=== PATIENT | male | born 1975 | race American Indian/Alaskan Native ===

== ENCOUNTER 2017-03-09 21:40 | Emergency (ER) | payer OTHER ==
[2017-03-10] MEDS ORDERED: FLEXERIL PO ONE ×2 (04:00→04:01)
[2017-03-10] MEDS ORDERED: MOTRIN PO ONE (04:00)
[2017-03-10] MEDS ORDERED: TORADOL IM ONE (04:01)
[2017-03-10] MEDS ORDERED: COZAAR PO ONE (04:02)
[2017-03-10 04:08] VITALS: BP 154/100
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
== END 2017-03-10 04:51 | disposition home or self-care (01) ==
LOC: ED 21:40
DX: S39.012A Strain of muscle, fascia and tendon of lower back, initial encounter (principal); I10 Essential (primary) hypertension; V49.59XA Passenger injured in collision with other motor vehicles in traffic accident, initial encounter; Y93.9 Activity, unspecified; Y92.9 Unspecified place or not applicable; Y99.9 Unspecified external cause status
CPT/HCPCS: 96372; 99283; J1885